=== PATIENT | female | born 1970 | race Caucasian/White ===

== ENCOUNTER 2019-04-04 14:53 | Inpatient (IN) | payer BC ==
[~2019-04-04] VITALS: Ht 154.9 cm; Wt 113.9 kg
[2019-04-04 14:53] VITALS: BP_SYST 144
--- NOTE | 2019-04-04 15:00 | NUR ---
BROUGHT IN BY [facility], PLACED IN BED #2 AND TRIAGED. REPORT GIVEN TO ALHAJI
--- NOTE | 2019-04-04 15:05 | NUR ---
Patient arrived in the ED c/o cough, congestion, shortness of breath, nausea, vomiting, diarrhea and bodyaches that started last Sunday. Patient denied any chest pain. Denied any fevers and chills. Patient is alert and oriented x4, speaking in full sentences, ambulating with a steady gait. VSS, pain level 9/10. Informed of approximate wait time. Instructed to notify ED staff for any changes in condition or worsening of symptoms. Patient verbalized understanding.
--- NOTE | 2019-04-04 15:10 | NUR ---
LIS Betancourt at bedside examining patient.
[2019-04-04] MEDS ORDERED: IPRATROPIUM/ALBUTEROL SULFATE 3 ML AMPUL.NEB (DUONEB) INH ONE ×2 (15:15→18:00)
[2019-04-04] MEDS ORDERED: ONDANSETRON HCL 4 MG/2 ML VIAL IVP ONE (15:15)
[2019-04-04] MEDS ORDERED: NACL 0.9% 1,000 ML IV ONE ×3 (15:15→20:30)
[2019-04-04] MEDS ORDERED: PANTOPRAZOLE SODIUM 40 MG/VIAL (PROTONIX) IVP ONE (15:15)
[2019-04-04] MEDS ORDERED: KETOROLAC TROMETHAMINE 30 MG VIAL IVP ONE (15:15)
--- NOTE | 2019-04-04 15:15 | NUR ---
RT at bedside administering breathing treatment as ordered by Dr. Betancourt. Patient tolerated the treatment well.
[2019-04-04] MEDS ORDERED: IPRATROPIUM/ALBUTEROL SULFATE 3 ML AMPUL.NEB (DUONEB) ONE (15:29)
--- NOTE | 2019-04-04 15:30 | NUR ---
ECG done at bedside as ordered by Dr. Betancourt. Patient tolerated the procedure well. Report given to
--- NOTE | 2019-04-04 15:32 | NUR ---
Administered Toradol, Protonix, and Zofran IVP as ordered by Dr. Betancourt. Patient tolerated the medication well. See eMAR for details.
--- NOTE | 2019-04-04 15:36 | NUR ---
medical laboratory technologist at bedside as ordered by Dr. Betancourt collecting blood specimen. Patient tolerated the procedure well.
--- NOTE | 2019-04-04 15:40 | NUR ---
X-ray tech at bedside as ordered by Dr. Betancourt. Patient tolerated the procedure well.
[2019-04-04 15:58] LABS: BASOPHILS % (AUTO) 0.2 % (0.0-2.0); HEMOGLOBIN 13.2 g/dL (12.0-16.0); LYMPHOCYTES # (AUTO) 1.2 K/uL (1.0-5.5); LYMPHOCYTES % (AUTO) 32.6 % (20.5-51.5); MEAN CORPUSCULAR HEMOGLOBIN 30 pg (27-31); MEAN CORPUSCULAR HGB CONC 34 % (32-36); MEAN CORPUSCULAR VOLUME 90 fL (79.0-98.0); MONOCYTES # (AUTO) 0.3 K/uL (0.0-1.0); MONOCYTES % (AUTO) 9.3 % (1.7-9.3); NEUTROPHILS # (AUTO) 2.2 K/uL (1.8-7.7); NEUTROPHILS % (AUTO) 57.9 % (40.0-70.0); PLATELET COUNT (AUTO) 193 K/uL (130-430); RED BLOOD CELL COUNT(AUTO) 4.35 MIL/uL (4.2-6.2); RED CELL DISTRIBUTION WIDTH 12.5 % (9.0-15.0); WHITE BLOOD COUNT (AUTO) 3.7 K/uL (4.8-10.8)
--- NOTE | 2019-04-04 16:00 | NUR ---
body art technician at bedside as ordered by Dr. Betancourt collecting blood specimen. Patient tolerated the procedure well.
[2019-04-04 16:05] LABS: CALCIUM 7.9 mg/dL (8.4-11.0); CREATININE 0.65 mg/dL (0.55-1.30)
[2019-04-04 16:09] LABS: ALBUMIN 2.7 g/dL (3.4-4.8); TOTAL BILIRUBIN 0.7 mg/dL (0.0-1.0)
--- NOTE | 2019-04-04 16:13 | NUR ---
Ambulated to the bathroom with a steady gait, urine specimen collected as ordered by Dr. Betancourt.
[2019-04-04 16:17] LABS: POTASSIUM 2.7 mmol/L (3.5-5.1)
[2019-04-04 16:32] LABS: BILIRUBIN,URINE NEGATIVE (NEGATIVE); BLOOD, URINE NEGATIVE (NEGATIVE); CLARITY/URINE CLEAR (CLEAR); COLOR,URINE YELLOW (YELLOW); GLUCOSE,URINE NEGATIVE (NEGATIVE); KETONES,URINE 1+ (NEGATIVE); LEUKOCYTE ESTERASE ,URINE NEGATIVE (NEGATIVE); NITRITE, URINE NEGATIVE (NEGATIVE); PH,URINE 6.5 (5.0-8.0); PROTEIN URINE TRACE (NEGATIVE)
[2019-04-04 16:39] LABS: BACTERIA,URINE FEW /HPF (None Seen); RBC,URINE NONE SEEN /HPF (0-3); WBC,URINE 0-3 /HPF (0-3)
[2019-04-04 16:40] LABS: MUCUS,URINE None Seen /LPF (None Seen)
[2019-04-04] MEDS ORDERED: POTASSIUM CHLORIDE 20 MEQ TAB.PRT.SR PO ONE ×2 (16:45→20:00)
[2019-04-04] MEDS ORDERED: PIPERACILLIN/TAZO 3.375 GM in NS 50 ML IV ONE (16:45)
[2019-04-04] MEDS ORDERED: PIPERACILLIN/TAZOBACTAM 3.375 GM/VIAL (ZOSYN) IV ONE (16:51)
--- NOTE | 2019-04-04 17:22 | NUR ---
ER Dr. Betancourt at bedside giving results to the patient.
--- NOTE | 2019-04-04 17:34 | NUR ---
Patient is full code. Patient stated she's not taking any home prescription medications.
--- NOTE | 2019-04-04 17:50 | NUR ---
Patient ambulated to the bathroom with a steady gait.
[2019-04-04] MEDS ORDERED: OSELTAMIVIR PHOSPHATE 75 MG CAPSULE PO ONE (18:00)
--- NOTE | 2019-04-04 18:08 | NUR ---
Received admiting orders from Dr. Pizarro. Spoke with Rimma, awaiting bed availability.
--- NOTE | 2019-04-04 18:55 | NUR ---
Patient will be admitted to care of Dr. Pizarro. Admitted to Telemetry unit. Will go to room 125A. Belongings list completed. Complete and up to date summary report printed. SBAR report given to KENNEDI Sexton at bedside with opportunity for questions.
--- NOTE | 2019-04-04 19:00 | NUR ---
ADMISSION RN NOTES RECEIVED PATIENT FROM ER REPORT TAKEN FROM ER NURSE, PLACED IN BED NO DISTRESS VITAL SIGNS TAKEN BP 141/78 71,99% ,98 NO FEVER 18, PATIENT WITH A LOT OF VISITORS AT THIS TIME , AMBULATES TO THE , WILL FOLLOW UP WITH CARE Addendum: 04/04/19 at 1918 by Carlie Honeycutt RN WILL ENDORSE TO NEXT SHIFT TO [facility] ON CONTACT ISOLATION FOR FLU/PNA
[2019-04-04 19:15] VITALS: BP_SYST 141
[2019-04-04 19:18] VITALS: BP_SYST 134
[2019-04-04] MEDS ORDERED: HYDROcodone/ACETAMIN 10-325 MG TAB PO PRN (19:45)
[2019-04-04] MEDS ORDERED: HYDROcodone/ACETAMIN 5-325 MG TAB (NORCO/ VICODIN) PO PRN (19:45)
[2019-04-04] MEDS ORDERED: ONDANSETRON HCL 4 MG/2 ML VIAL IVP PRN (19:45)
--- NOTE | 2019-04-04 19:45 | NUR ---
ROUNDS PATIENT RESTING COMFORTABLY IN BED, NOT IN DISTRESS, VITALS STABLE, DENIES ANY PAIN AND DISCOMFORT AT THIS TIME. ASSESSMENT DONE AND DOCUMENTED. ORIENTED TO HER ROOM, PHONE AND CALL LIGHT. NEEDS ATTENDED TO. SAFETY AND FALL PRECAUTION MEASURES IN PLACED. BED IN LOW AND LOCKED POSITION. CALL LIGHT PLACED WITHIN REACH.
[2019-04-04] MEDS: NACL 0.9% 1,000 ML IV SCH (22:17)
[2019-04-04] MEDS: cefTRIAXone 1 GM IVPB PREMIX 50 ML IV SCH (22:18)
[2019-04-04] MEDS ORDERED: cefTRIAXone 1 GM IVPB PREMIX 50 ML IV ONE (22:26)
[2019-04-04] MEDS ORDERED: AZITHROMYCIN 500 MG/VIAL (ZITHROMAX) IV ONE (22:27)
--- NOTE | 2019-04-04 22:46 | NUR ---
DR. GRANADOS PAGED AND TALKED TO DR. GRANADOS, PATIENT WANTS COUGH MEDICATION. NEW ORDER GIVEN. WILL CONTINUE TO MONITOR.
[2019-04-04] MEDS: guaiFENesin 200 MG/CODEINE 20 MG/ 10 ML UDC PO PRN (23:11)
[2019-04-04] MEDS: AZITHROMYCIN 500 MG in NS 250 ML IV SCH (23:12)
[2019-04-05] VITALS: BP_SYST 132
--- NOTE | 2019-04-05 00:36 | NUR ---
PATIENT RESTING: Patient resting quietly. No acute distress noted. Vital signs within normal range.
--- NOTE | 2019-04-05 02:14 | NUR ---
ROUNDS PATIENT ASLEEP, RESPIRATIONS EVEN AND UNLABORED, WILL CONTINUE TO MONITOR.
--- NOTE | 2019-04-05 04:16 | NUR ---
PATIENT RESTING: Patient resting quietly. No acute distress noted. Vital signs within normal range.
[2019-04-05] MEDS: NACL 0.9% 1,000 ML IV SCH ×3 (05:00→21:00)
[2019-04-05 06:09] LABS: BASOPHILS % (AUTO) 0.2 % (0.0-2.0); EOSINOPHILS % (AUTO) 0.1 % (0.0-4.0); HEMATOCRIT 35.8 % (36-48); HEMOGLOBIN 12.2 g/dL (12.0-16.0); LYMPHOCYTES % (AUTO) 33.8 % (20.5-51.5); MEAN CORPUSCULAR HEMOGLOBIN 31 pg (27-31); MEAN CORPUSCULAR HGB CONC 34 % (32-36); MEAN CORPUSCULAR VOLUME 90 fL (79.0-98.0); MONOCYTES # (AUTO) 0.3 K/uL (0.0-1.0); MONOCYTES % (AUTO) 9.3 % (1.7-9.3); NEUTROPHILS # (AUTO) 1.7 K/uL (1.8-7.7); NEUTROPHILS % (AUTO) 56.6 % (40.0-70.0); PLATELET COUNT (AUTO) 189 K/uL (130-430); RED BLOOD CELL COUNT(AUTO) 3.98 MIL/uL (4.2-6.2); RED CELL DISTRIBUTION WIDTH 12.6 % (9.0-15.0); WHITE BLOOD COUNT (AUTO) 3.1 K/uL (4.8-10.8)
[2019-04-05 06:28] LABS: ALBUMIN 2.3 g/dL (3.4-4.8); CALCIUM 7.3 mg/dL (8.4-11.0); CREATININE 0.44 mg/dL (0.55-1.30); POTASSIUM 3.3 mmol/L (3.5-5.1); TOTAL BILIRUBIN 0.4 mg/dL (0.0-1.0)
--- NOTE | 2019-04-05 06:36 | NUR ---
CLOSING NOTES PATIENT AWAKE, VITALS STABLE, DENIES ANY PAIN AND DISCOMFORT AT THIS TIME. ALL NEEDS ATTENDED TO. SAFETY MEASURES MAINTAINED. CALL LIGHT PLACED WITHIN REACH.
[2019-04-05 07:56] VITALS: BP_SYST 137
--- NOTE | 2019-04-05 08:00 | NUR ---
ASSUMPTION OF CARE: RECEIVED PT A/A/OX4, DX:INADEQUATE VENTILATION, R/T PNEUMONIA, BREATH SOUNDS ARE CLEAR, BUT DIMINISHED, BREATHING UNLABORED AT THIS TIME, O2 SAT=89% WHILE ON 2L VIA N/C, AFEBRILE, NO C/O PAIN, IV SITE INTACT, PATENT, NO REDNESS OR SWELLING, PT IS CALM AND COOPERATIVE, ORIENTED TO UNIT, CALL LIGHT PLACED WITHIN REACH, FAMILY AT BEDSIDE, WILL CONT' TO MONITOR AND ASSESS.
[2019-04-05] MEDS: ALBUTEROL SULFATE 0.083% 2.5 MG/3 ML VIAL.NEB INH PRN ×2 (08:19→11:06)
[2019-04-05] MEDS: OSELTAMIVIR PHOSPHATE 75 MG CAPSULE PO SCH ×2 (08:19→20:34)
--- NOTE | 2019-04-05 09:00 | NUR ---
REGISTERED PUBLIC HEALTH NURSE: MORNING MEDS GIVEN, PER ORDERED BY Rl, TOLERATED WELL, WILL CONT' TO MONITOR, WILL CONT' WITH POC.
[2019-04-05 12:37] VITALS: BP_SYST 136
--- NOTE | 2019-04-05 13:00 | NUR ---
PAIN: PT C/O HEADACHE 3/10 VIA NUMERIC SCALE, MED GIVEN, TOLERATED WELL, WILL CONT' TO MONITOR AND ASSESS.
--- NOTE | 2019-04-05 16:00 | NUR ---
NURSES NOTES: PT ASLEEP IN POSITION OF COMFORT, WITH CALL LIGHT WITHIN REACH, FAMILY AT BEDSIDE, ASLEEP IN RECLINER CHAIR, NO S/S OF DISTRESS, NO INDICATION OF PAIN OR DISCOMFORT, WILL CONT' TO MONITOR AND ASSESS.
[2019-04-05 16:43] VITALS: BP_SYST 129
--- NOTE | 2019-04-05 18:10 | NUR ---
END OF SHIFT: PT HAS NO SIGNIFICANT CHANGES, NO C/O ANYTHING AT THIS TIME, NEEDS MET, CALL LIGHT WITHIN REACH, WILL CONT' TO MONITOR, WILL ENDORSE TO EDGER HAND NURSE.
--- NOTE | 2019-04-05 19:40 | NUR ---
ROUNDS PATIENT RESTING COMFORTABLY IN BED, NOT IN DISTRESS, VITALS STABLE, DENIES ANY PAIN AND DISCOMFORT AT THIS TIME. ASSESSMENT DONE AND DOCUMENTED. SEE FLOWSHEET. NEEDS ATTENDED TO. SAFETY AD FALL MEASURES IN PLACED. BED IN LOW AND LOCKED POSITION. CALL LIGHT PLACED WITHIN REACH.
[2019-04-05 20:00] VITALS: BP_SYST 128
[2019-04-05] MEDS: AZITHROMYCIN 500 MG in NS 250 ML IV SCH (20:34)
--- NOTE | 2019-04-05 20:40 | NUR ---
MEDICATION DUE MEDICATIONS GIVEN SCHEDULED, TOLERATED WELL. WILL CONTINUE TO MONITOR.
--- NOTE | 2019-04-05 20:42 | NUR ---
PT SATING 85%, GAVE TX AND PLACED BACK ON 2L. PT SATING 85%. PUT ON 4L PT SATING 88%. PUT ON 5L WITH HUMIDIFICATION, PT SATING 90%. WILL CONTINUE TO MONITOR. Addendum: 04/05/19 at 2134 by Karla Rollins RT Amended: Links added.
[2019-04-05] MEDS: guaiFENesin 200 MG/CODEINE 20 MG/ 10 ML UDC PO PRN (20:58)
[2019-04-05] MEDS: cefTRIAXone 1 GM IVPB PREMIX 50 ML IV SCH (22:40)
--- NOTE | 2019-04-05 23:35 | NUR ---
PT ASLEEP SATING 94% 72 HR, NO TX NEEDED AT THIS TIME.
[2019-04-05 23:45] VITALS: BP_SYST 134
[2019-04-06] VITALS (17 sets, daily range): BP systolic 131–169
[2019-04-06] MEDS: ALBUTEROL SULFATE 0.083% 2.5 MG/3 ML VIAL.NEB INH PRN ×2 (01:21→08:34)
--- NOTE | 2019-04-06 02:15 | NUR ---
DR. GRANADOS PAGED AND TALKED TO DR. GRANADOS, PATIENT'S O2 SAT LOW 91% AFTER BREATHING TREATMENT GIVEN BY RT AND PATIENT PUT ON OXYMIZER AT 5L. PATIENT ALSO WITH WHEEZING ON BILATERAL BASAL LUNG SANDERS. NEW ORDER FOR ABG GIVEN. WILL CONTINUE TO MONITOR.
--- NOTE | 2019-04-06 03:03 | NUR ---
DR. GRANADOS CALLED AND INFORMED DR. GRANADOS OF THE ABG RESULT, JUST MONITOR PATIENT FOR NOW.
--- NOTE | 2019-04-06 04:12 | NUR ---
NOTES DR. GRANADOS CALLED WITH NEW ORDERS TO TRANSFER PATIENT TO ICU AND PULSOHA MORSE WITH DR. TERRELL.
[2019-04-06] MEDS: NACL 0.9% 1,000 ML IV SCH (05:00)
--- NOTE | 2019-04-06 05:05 | NUR ---
NOTES PATIENT TRANSFERRED TO ICU ORDERED, FAMILY AT THE BEDSIDE. GAVE REPORT TO ICU NURSE REMI.
--- NOTE | 2019-04-06 05:30 | NUR ---
PT RECIEVED AWAKE ALERT AND ORIENTED X 4 . PT WAS TRANFERED TO ICU WITH RESPITORY DISTRESS , PT ON OXYMIZER 8 LITERS . O2 SAT IS 92%. PT ON SINUS RYTHM WITH NO ECTOPIC BEAT .PT O2 SAT WILL BE MONITORED CONTINUOSLY .
--- NOTE | 2019-04-06 07:45 | NUR ---
Opening Note Patient received resting in bed with family at bedside, no signs of distress noted at this time. Patient does not complain of pain. Patient connected to transverse abdominal muscle nurse with NSR. Patient on 8L oxygen via oxymizer. Patient has peripheral line receiving fluids. Patient uses bedpan to void. Safety precautions enforced. Call light within reach.
[2019-04-06] MEDS ORDERED: FUROSEMIDE 40 MG/4 ML VIAL IVP ONE (08:30)
[2019-04-06] MEDS: BUDESONIDE 0.5 MG/2 ML AMPUL.NEB INH SCH ×2 (08:34→21:36)
[2019-04-06] MEDS: OSELTAMIVIR PHOSPHATE 75 MG CAPSULE PO SCH ×2 (08:53→21:32)
[2019-04-06] MEDS: methylPREDNISolone SOD SUCC 40 MG/ML VIAL IVP SCH ×2 (08:53→21:32)
[2019-04-06] MEDS: ENOXAPARIN SODIUM 40 MG/0.4 ML SYRINGE SUBCUT SCH (08:56)
--- NOTE | 2019-04-06 09:33 | NUR ---
CONSULTATION PAGED/CALLED Reason for Consultation: LOW O2 SAT Person Who was Notified: ANJELICA Consulting Physician: DR TERRELL Video Library Assistant Specialty: PULMO Ordering Physician: DR CHAUHAN
[2019-04-06] MEDS: 0.45% NACL 1,000 ML IV SCH ×2 (14:22→21:54)
--- NOTE | 2019-04-06 15:37 | NUR ---
Paged Dr. Patino paged for critical result. Left voicemail.
--- NOTE | 2019-04-06 19:05 | NUR ---
Closing Note Patient endorsed to vehicle mechanic RN using SBAR format. Patient in no signs of distress at this watching television.
--- NOTE | 2019-04-06 19:15 | NUR ---
change of shift.pt.presents isolation status;droplet.pt.presents +influenzae results.pt.presents general status. pt.presents iv fluids.pt presents o2 therapy via oximizer;administered@the rate;8l/min.o2-sat%=94%.no c/o pain, nausea.pt.presents cough;slight.pt.capable to reposition self/ambulate.call light/telephone w/in reach of the pt.
--- NOTE | 2019-04-06 20:00 | NUR ---
pt.assessed.v/s assessed;noted b/p value elevated;to re-assess.pt.presents no c/o pain,nausea.iv access intact;patent iv fluids infusing,. i have inspected the bsc;clean.respiratory status;labored;slight;o2-sat%=94%.i have apprised the pt that i may provide snacks./beverages w/in the shift. pt.had requested pudding.box;tissues.i have provided the items.pt.capable to reposition self.call light/telephone w/in reach of the pt.
--- NOTE | 2019-04-06 21:00 | NUR ---
i have administered the 2100p medications.ivpb;rocephin/zithromax.tamiflu.no requests posited@this hour.
[2019-04-06] MEDS: cefTRIAXone 1 GM IVPB PREMIX 50 ML IV SCH (21:32)
[2019-04-06] MEDS: AZITHROMYCIN 500 MG in NS 250 ML IV SCH (21:33)
--- NOTE | 2019-04-06 22:00 | NUR ---
pt.assessed.v/s assessed:noted the b/p values.elevated.i have replaced the old b/p cuff w the large sized b/p cuff ;re;-located the b/p to the lt.bicept.to re-assess the b/p.no c/o pain,nausea.iv access intact;patent.iv fluids infusing.i have attended tho the bsc;i ave measured/cleaned th basin.placed w/in access of the pt.pt.capable to reposition self.call light/telephone w/in reach of the pt.
[2019-04-07] VITALS (23 sets, daily range): BP systolic 118–154
--- NOTE | 2019-04-07 | NUR ---
pt.assessed.v/s assessed;values w/in normal limits.noted th b/p values.i have re-located the b/p cuff @the lt.bicpet;large cuff. values noted decreased from the previous cuff./cuff placement.i have attended to the bsc.measured/cleaned.placed w/in the access of the pt.no c/o pain,nausea.pt.capable to reposition self.iv fluids infusing.call light/telephone w/in reach of the pt.
--- NOTE | 2019-04-07 02:00 | NUR ---
pt.assessed.v/s assessed.noted the b/p values w/in normal limits.no c/o pain,nausea.o2-sat%=94%.respiratory status slight labored.i have inspected the bsc.clean.general status stable.pt.capable to reposition self.call light/ telephone w/in reach of the pt.
--- NOTE | 2019-04-07 04:00 | NUR ---
pt.assessed/v/s assessed;values w/in normal limits;note b/p values.no c/o pain,nausea.respiratory status stable;slight labored;02-sat%=96%.iv acces intact;patent iv fluids infusing.i have inspected the bsc;clean.general status stable.pt capable to reposition self.call light/telephone w/in reach of the pt.
[2019-04-07 06:08] LABS: BASOPHILS % (AUTO) 0.2 % (0.0-2.0); HEMATOCRIT 38.1 % (36-48); HEMOGLOBIN 12.6 g/dL (12.0-16.0); LYMPHOCYTES # (AUTO) 0.7 K/uL (1.0-5.5); LYMPHOCYTES % (AUTO) 16.5 % (20.5-51.5); MEAN CORPUSCULAR HEMOGLOBIN 30 pg (27-31); MEAN CORPUSCULAR HGB CONC 33 % (32-36); MEAN CORPUSCULAR VOLUME 90 fL (79.0-98.0); MONOCYTES # (AUTO) 0.4 K/uL (0.0-1.0); MONOCYTES % (AUTO) 9.1 % (1.7-9.3); NEUTROPHILS % (AUTO) 74.2 % (40.0-70.0); PLATELET COUNT (AUTO) 185 K/uL (130-430); RED BLOOD CELL COUNT(AUTO) 4.22 MIL/uL (4.2-6.2); RED CELL DISTRIBUTION WIDTH 12.4 % (9.0-15.0); WHITE BLOOD COUNT (AUTO) 4.1 K/uL (4.8-10.8)
--- NOTE | 2019-04-07 06:28 | NUR ---
pt.assessed.v/s assessed;values w/in normal limits.noted b/p demetrio;8es w/in normal limits.no c/o pain,nausea.iv acces intact; patent iv fluids infusing.i have attended to the bsc;measured/cleaned w/in access of the pt.general status stable. respiratory status stable;slight labored:o2-sat%=94%.pt capable to reposition self.no requests posted@this hour.call light/telephone w/in reach of the pt.
[2019-04-07 06:46] LABS: ALBUMIN 2.4 g/dL (3.4-4.8); CALCIUM 8.4 mg/dL (8.4-11.0); CREATININE 0.48 mg/dL (0.55-1.30); TOTAL BILIRUBIN 0.5 mg/dL (0.0-1.0)
--- NOTE | 2019-04-07 07:07 | NUR ---
RECEIVED NURSING REPORT FROM ACCESS LEAD BETHANY Valdez
[2019-04-07] MEDS: methylPREDNISolone SOD SUCC 40 MG/ML VIAL IVP SCH ×2 (08:34→21:06)
[2019-04-07] MEDS: OSELTAMIVIR PHOSPHATE 75 MG CAPSULE PO SCH ×2 (08:35→21:06)
[2019-04-07] MEDS: ENOXAPARIN SODIUM 40 MG/0.4 ML SYRINGE SUBCUT SCH (08:35)
[2019-04-07] MEDS: 0.45% NACL 1,000 ML IV SCH (08:38)
--- NOTE | 2019-04-07 09:00 | NUR ---
SEE PATIENT AND UPDATED PATIENT,S CONDITION WITH PATIENT AND HER FAMILY AT BEDSIDE
[2019-04-07] MEDS ORDERED: 0.45% NACL 1,000 ML IV SCH (09:45)
--- NOTE | 2019-04-07 10:05 | NUR ---
SEE PATIENT, ORDERED CHANGE IVF RATE TO 0.45% N.S AT 50 ML/HOR, GIVE KCL 40 MEQ P.O X ONCE FOR POTASSIUM LEVEL 3.0, AND FOLLOW UP LAB, CHEST X-RAY IN A.M
--- NOTE | 2019-04-07 10:10 | NUR ---
PATIENT REFUSED LOVENOX, AWARE
[2019-04-07] MEDS: POTASSIUM CHLORIDE 20 MEQ TAB.PRT.SR PO SCH ×2 (10:24→13:00)
--- NOTE | 2019-04-07 19:13 | NUR ---
GIVE COMPLETE NURSING REPORT TO BEAMER HELPER SCOTT Valdez
--- NOTE | 2019-04-07 19:30 | NUR ---
PM ASSESSMENT REPORT RECEIVED FROM DIANN KOLB. PT RECEIVED SITTING UP IN BED, AAOX4, AND ABLE TO VERBALIZE NEEDS. VSS, NO S/S OF ACUTE DISTRESS NOTED. PT ON 8L OXIMIZER. SR ON MONITOR. RFA 22G IN PLACE INFUSING 1/2 NS @ 50 CC/HR. PT DENIES ANY PAIN OR DISCOMFORT AT THIS TIME. HOB ELEVATED, BED IN LOWEST POSITION, CALL LIGHT IN REACH. WILL CONTINUE TO MONITOR PT.
[2019-04-07] MEDS: AZITHROMYCIN 500 MG in NS 250 ML IV SCH (21:05)
[2019-04-07] MEDS: cefTRIAXone 1 GM IVPB PREMIX 50 ML IV SCH (21:06)
[2019-04-07] MEDS: BUDESONIDE 0.5 MG/2 ML AMPUL.NEB INH SCH (21:33)
[2019-04-08] VITALS (24 sets, daily range): BP systolic 102–150
--- NOTE | 2019-04-08 | NUR ---
CHG PT REFUSED CHG BATH AT THIS TIME AND STATES SHE WOULD RATHER HAVE IT DONE DURING THE DAY. WILL CONTINUE TO MONITOR PT.
[2019-04-08 06:29] LABS: CALCIUM 8.1 mg/dL (8.4-11.0); CREATININE 0.51 mg/dL (0.55-1.30); POTASSIUM 3.8 mmol/L (3.5-5.1)
--- NOTE | 2019-04-08 07:07 | NUR ---
RECEIVED NURSING REPORT FROM CHAR FILTER OPERATOR SCOTT Valdez
[2019-04-08] MEDS: methylPREDNISolone SOD SUCC 40 MG/ML VIAL IVP SCH ×2 (08:14→21:09)
[2019-04-08] MEDS: OSELTAMIVIR PHOSPHATE 75 MG CAPSULE PO SCH ×2 (08:14→21:10)
[2019-04-08] MEDS: ENOXAPARIN SODIUM 40 MG/0.4 ML SYRINGE SUBCUT SCH (08:15)
--- NOTE | 2019-04-08 08:30 | NUR ---
PATIENT IS REFUSED LOVENOX , DR BANKS AWARE, SEE PATIENT AND UPDATED PATIENT,S CONDITION WITH PATIENT AT BEDSIDE, ORDERED HELP PATIENT TO SITTING ON THE BEDSIDE CHAIR, CALL LIGHT IN REACH, KEEP CLOSE MONITOR FOR SAFETY AND KEEP COMFORTABLE SUPPORT ALL TIMES
--- NOTE | 2019-04-08 09:36 | NUR ---
Nutrition Update Edi Scale 18 noted. Pt admitted for pneumonia. Diet: regular BMI: 47.4 kg/m2 RD to follow per nutrition care standards.
[2019-04-08] MEDS: BUDESONIDE 0.5 MG/2 ML AMPUL.NEB INH SCH ×2 (09:53→21:10)
--- NOTE | 2019-04-08 10:18 | NUR ---
1000 TITRATED FIO2 TO 5L OXYMIZER. SAT 94% RN DIANN AWARE. Addendum: 04/08/19 at 1020 by Latricia Quiles RT Amended: Links added.
--- NOTE | 2019-04-08 10:26 | NUR ---
AT 1000 A.M, SEE PATIENT, ORDERED DISCONTINUE IVF, AND TITRATED OXYMIZER O2 TO 5 LPM
--- NOTE | 2019-04-08 14:56 | NUR ---
Dietitian Recommendations * Recommend continuing regular diet * Encourage increase PO intakes LP, RD Please refer to Nutrition Assessment for details.
--- NOTE | 2019-04-08 19:31 | NUR ---
GIVE COMPLETE NURSING REPORT TO STRUCTURAL METAL WORKER ABHISHEK Valdez
--- NOTE | 2019-04-08 19:45 | NUR ---
Received patient after report from day shift nurse. Patient sitting in chair with family at bedside and interacting appropriately. Occasional cough non productive noted. denies pain and no signs of respiratory distress reported or noted. upon auscultation lungs sounds are clear but with short inspiratory process BL upper lobes. IV site R FA patent and flushing well no signs of infiltration noted. Able to use BSC with minimal supervision. As per patient: "The Doctor told me to only get in bed when I need to sleep", but c/o BL feet swelling. Instructed to elevate legs and to rest in bed when noticing swelling. bed set to lowest settings and call light within reach. will continue to monitor as per unit protocol.
[2019-04-08] MEDS: AZITHROMYCIN 500 MG in NS 250 ML IV SCH (21:10)
[2019-04-08] MEDS: cefTRIAXone 1 GM IVPB PREMIX 50 ML IV SCH (22:22)
--- NOTE | 2019-04-08 22:30 | NUR ---
Family going home, patient assisted to bed from chair reporting poor sleep. IV site SL. call light within reach and instructed patient to call nurse for assistance. patient verbalized understanding.
[2019-04-09] VITALS (10 sets, daily range): BP systolic 110–139
--- NOTE | 2019-04-09 07:07 | NUR ---
RECEIVED NURSING REPORT FROM ACID CUTTER ABHISHEK Valdez
[2019-04-09] MEDS: OSELTAMIVIR PHOSPHATE 75 MG CAPSULE PO SCH ×2 (08:50→21:51)
--- NOTE | 2019-04-09 08:50 | NUR ---
SEE PATIENT, ORDERED DOWN GRADE TO TELE STATUS AND START PHYSICAL THERAPY SERVICE, NOTIFY CHARGE NURSE ROMAINE YOUNG
[2019-04-09] MEDS: methylPREDNISolone SOD SUCC 40 MG/ML VIAL IVP SCH ×2 (08:51→21:52)
[2019-04-09] MEDS: ENOXAPARIN SODIUM 40 MG/0.4 ML SYRINGE SUBCUT SCH (08:52)
--- NOTE | 2019-04-09 09:00 | NUR ---
DR TERRELL SEE PATIENT, ORDERED FOLLOW UP CBC, BMP, CHEST X-RAY IN A.M
[2019-04-09] MEDS: BUDESONIDE 0.5 MG/2 ML AMPUL.NEB INH SCH ×2 (09:37→20:15)
--- NOTE | 2019-04-09 10:22 | NUR ---
CHG BATH DONE
--- NOTE | 2019-04-09 11:46 | NUR ---
GIVE COMPLETE NURSING REPORT TO MED-SURG SUZANNE Valdez
--- NOTE | 2019-04-09 12:10 | NUR ---
TRANSFER FROM ICU RECEIVED PT FROM ICU VIA WHEELCHAIR. PT STABLE. NO ACUTE DISTRESS NOTED. OXYMIZER INTACT AND PATENT, OXYGEN RUNNING ORDERED, TOLERATING WELL. IV INTACT AND PATENT, NO SIGNS OF INFILTRATION. ALL NEEDS MET. BED IN LOWEST AND LOCKED POSITION. CALL LIGHT IN REACH. FALL AND ASPIRATION PRECAUTIONS IN PLACE. CONTINUE TO MONITOR.
--- NOTE | 2019-04-09 13:30 | NUR ---
ASSISTED PT FROM BED TO BATHROOM TOLERATED WELL. NO ACUTE DISTRESS NOTED. ALL NEEDS MET, CALL LIGHT IN REACH. CONTINUE TO MONITOR.
--- NOTE | 2019-04-09 14:00 | NUR ---
ASSISTED PT WITH TRANSFER FROM BED TO CHAIR TOLERATED WELL. NO ACUTE DISTRESS NOTED. ALL NEEDS MET. CALL LIGHT IN REACH. FALL AND ASPIRATION PRECAUTIONS IN PLACE. CONTINUE TO MONITOR.
--- NOTE | 2019-04-09 16:00 | NUR ---
ROUNDS PT AWAKE, ALERT, AND ORIENTED. NO ACUTE DISTRESS NOTED. NONLABORED BREATHING NOTED. ALL NEEDS MET. CALL LIGHT IN REACH. CONTINUE TO MONITOR.
--- NOTE | 2019-04-09 18:00 | NUR ---
ROUNDS PT AWAKE, ALERT, AND ORIENTED. NO ACUTE DISTRESS NOTED. WATCHING TV IN BED. ALL NEEDS MET. CALL LIGHT IN REACH. CONTINUE TO MONITOR.
--- NOTE | 2019-04-09 18:06 | NUR ---
P.T. NOTES P.T. EVAL COMPLETED; PATIENT MAY AMBU W/ NURSE AD MELLO INSIDE ROOM; O2 SAT ROOM AIR=89%, 2L=94%, 3L=96% W/ ACTIVITY.
--- NOTE | 2019-04-09 18:45 | NUR ---
CLOSING NOTES PT AWAKE, ALERT, AND ORIENTED. NONLABORED BREATHING NOTED. OXYMIZER INTACT AND PATENT, RUNNING ORDERED PER MD, TOLERATING WELL. NO ACUTE DISTRESS NOTED. ALL NEEDS MET. BED LOCKED AND IN LOWEST POSITION. CALL LIGHT IN REACH. WILL ENDORSE TO NOC NURSE.
--- NOTE | 2019-04-09 19:45 | NUR ---
A/A/O X4.AMBULATORY.OOB TO THE BR.DENIES ANY DISCOMFORT, SOB @ THIS TIME.PER PT WITH PRODUCTIVE COUGH WITH CLEAR PHLEGM STATED.O2 SAT ON 5L OXYMIZER 96%.
[2019-04-09] MEDS: ALBUTEROL SULFATE 0.083% 2.5 MG/3 ML VIAL.NEB INH PRN (19:56)
--- NOTE | 2019-04-09 22:00 | NUR ---
DUE MEDS ADM.
[2019-04-09] MEDS: cefTRIAXone 1 GM IVPB PREMIX 50 ML IV SCH (22:09)
--- NOTE | 2019-04-10 | NUR ---
V/S KERWIN.AFEBRITOÑO.FAMILY @ THE BS.
--- NOTE | 2019-04-10 02:00 | NUR ---
RESTING COMFORTABLY IN NO ACUTE DISTRESS.
--- NOTE | 2019-04-10 04:00 | NUR ---
RESTING WITH BOTH EYES CLOSED.NO ACUTE DISTRESS.FAMILY @ THE BS.
--- NOTE | 2019-04-10 05:15 | NUR ---
KILN PLACER CALLED FOR HR 44.EASILY AROUSABLE.DENIES CP.BP147/83.FAMILY @ THE BS.
--- NOTE | 2019-04-10 07:03 | NUR ---
ENDORSED IN NO ACUTE DISTRESS.SAFETY MAINTAINED.CALL LIGHT WITHIN REACH.
[2019-04-10 07:05] LABS: HEMATOCRIT 41.8 % (36-48); HEMOGLOBIN 13.9 g/dL (12.0-16.0); LYMPHOCYTES # (AUTO) 1.1 K/uL (1.0-5.5); LYMPHOCYTES % (AUTO) 13.7 % (20.5-51.5); MEAN CORPUSCULAR HEMOGLOBIN 30 pg (27-31); MEAN CORPUSCULAR HGB CONC 33 % (32-36); MEAN CORPUSCULAR VOLUME 90 fL (79.0-98.0); MONOCYTES # (AUTO) 0.6 K/uL (0.0-1.0); MONOCYTES % (AUTO) 7.6 % (1.7-9.3); NEUTROPHILS # (AUTO) 6.5 K/uL (1.8-7.7); NEUTROPHILS % (AUTO) 78.7 % (40.0-70.0); PLATELET COUNT (AUTO) 268 K/uL (130-430); RED BLOOD CELL COUNT(AUTO) 4.65 MIL/uL (4.2-6.2); RED CELL DISTRIBUTION WIDTH 12.6 % (9.0-15.0); WHITE BLOOD COUNT (AUTO) 8.3 K/uL (4.8-10.8)
--- NOTE | 2019-04-10 07:05 | NUR ---
OPENING NOTES PT AWAKE, ALERT, AND ORIENTED IN BED. NO ACUTE DISTRESS NOTED. OXYMIZER INTACT AND PATENT, OXYGEN RUNNING AT 3L, TOLERATING WELL. NONLABORED BREATHING NOTED. IV INTACT AND PATENT, NO SIGNS OF INFILTRATION. ALL NEEDS MET. BED IN LOWEST AND LOCKED POSITION. CALL LIGHT IN REACH. FALL, ASPIRATION, AND ISOLATION PRECAUTIONS IN PLACE. CONTINUE TO MONITOR.
[2019-04-10 07:14] VITALS: BP_SYST 136
[2019-04-10] MEDS: ALBUTEROL SULFATE 0.083% 2.5 MG/3 ML VIAL.NEB INH PRN (07:15)
[2019-04-10] MEDS: BUDESONIDE 0.5 MG/2 ML AMPUL.NEB INH SCH (07:22)
[2019-04-10 07:39] LABS: CALCIUM 8.7 mg/dL (8.4-11.0); CREATININE 0.54 mg/dL (0.55-1.30); POTASSIUM 3.8 mmol/L (3.5-5.1)
[2019-04-10 08:00] VITALS: BP_SYST 136
[2019-04-10] MEDS: ENOXAPARIN SODIUM 40 MG/0.4 ML SYRINGE SUBCUT SCH (08:21)
[2019-04-10] MEDS: methylPREDNISolone SOD SUCC 40 MG/ML VIAL IVP SCH (08:21)
--- NOTE | 2019-04-10 08:21 | NUR ---
ROUTINE MEDS ROUTINE MEDS ADMINISTERED ORDERED PER MD, EDUCATION GIVEN, TOLERATED WELL. PT SITTING UP EATING BREAKFAST. NONLABORED BREATHING NOTED. NO ACUTE DISTRESS NOTED. ALL NEEDS MET. CALL LIGHT IN REACH. FALL AND ASPIRATION PRECAUTIONS IN PLACE. CONTINUE TO MONITOR.
--- NOTE | 2019-04-10 10:30 | NUR ---
ROUNDS PT AWAKE, ALERT, AND ORIENTED. PT SITTING UP IN CHAIR TALKING WITH FRIEND. NO ACUTE DISTRESS NOTED. ALL NEEDS MET. CALL LIGHT IN REACH. CONTINUE TO MONITOR.
--- NOTE | 2019-04-10 11:45 | NUR ---
WEANED PT'S OXYMIZER TO 2L, EDUCATION GIVEN, TOLERATED WELL. NONLABORED BREATHING NOTED. O2 SAT AT 92%. NO ACUTE DISTRESS NOTED. ALL NEEDS MET. CALL LIGHT IN REACH. CONTINUE TO MONITOR.
[2019-04-10 12:28] VITALS: BP_SYST 144
--- NOTE | 2019-04-10 12:30 | NUR ---
ROUNDS PT AWAKE, ALERT, AND ORIENTED. NO ACUTE DISTRESS NOTED. ALL NEEDS MET. CALL LIGHT IN REACH. CONTINUE TO MONITOR.
--- NOTE | 2019-04-10 12:45 | NUR ---
PT PUT ON ROOM AIR, EDUCATION GIVEN, TOLERATED WELL. NONLABORED BREATHING NOTED. NO ACUTE DISTRESS NOTED. OXYGEN SAT AT 92%. ALL NEEDS MET. CALL LIGHT IN REACH. CONTINUE TO MONITOR.
--- NOTE | 2019-04-10 13:00 | NUR ---
SEEN BY DR. BANKS AT BEDSIDE.
[2019-04-10 13:25] VITALS: BP_SYST 150
--- NOTE | 2019-04-10 15:15 | NUR ---
D/C Patient Patient given medication reconciliation form and D/C instructions. Exit Care provided. Patient verbalized understanding. MD discussed with patient the results and treatment provided. Ambulatory with steady gait for discharge to home. Patient in stable condition, ID band removed. IV catheter removed, intact and dressing applied, no active bleeding. Rx of Z-PACK, ALBUTEROL AND PREDNISONE given. Patient educated on pain management. All belongings sent with patient.
--- NOTE | 2019-04-17 14:43 | NUR ---
Discharge Follow Up Phone Call Phoned patient, . Patient stated she is doing better. She has attended her follow up appointment with her PCP. She filled her prescriptions and is taking her medication as directed. No questions or concerns.
== END 2019-04-10 15:15 | disposition home or self-care (01) | DRG 193 ==
LOC: SED 14:53 → EDBD 14:53 → STU 18:13 → SIC 04-06 05:29 → STU 04-09 12:07
PROVIDERS: ADMIT Internal Medicine; ATTEND Internal Medicine
DX: J10.00 Influenza due to other identified influenza virus with unspecified type of pneumonia (principal); R65.11 Systemic inflammatory response syndrome (SIRS) of non-infectious origin with acute organ dysfunction; J96.01 Acute respiratory failure with hypoxia; Z68.42 Body mass index [BMI] 45.0-49.9, adult; E66.01 Morbid (severe) obesity due to excess calories; J06.9 Acute upper respiratory infection, unspecified; E87.6 Hypokalemia; Z82.49 Family history of ischemic heart disease and other diseases of the circulatory system; Z83.3 Family history of diabetes mellitus; Z85.828 Personal history of other malignant neoplasm of skin
CPT/HCPCS: 36415; 36600; 71045; 80048; 80053; 81000-TC; 82803-TC; 83605; 83690-TC; 84484; 85025; 86710; 87040-TC; 87081; 87086; 93005; 93970; 94640; 94760; 96365; 96375; 97163; 99285; C9113; G0378; G9035; J0456; J0696; J1030; J1650; J1885; J1940; J2405; J2543; J7030; J7050; J7613; J7620; J7626